=== PATIENT | female | born 1935 | race Caucasian/White ===

== ENCOUNTER 2017-11-12 10:21 | Emergency (ER) | payer MEDICARE, BC ==
--- NOTE | 2017-11-12 11:00 | CT ---
CT BRAIN: Date: 11/12/17 PROVIDED CLINICAL HISTORY: Trauma. FINDINGS: Comparison with 01/25/14. The ventricular system appears normal in size and morphology. There is no evidence for intracranial h emorrhage or mass effect. The extracranial soft tissues and osseous structures demonstrate no acute a bnormality. Chronic microvascular ischemic changes are again seen. IMPRESSION: No evidence for intracranial hemorrhage or mass effect. POS: [facility]
[2017-11-12 11:11] LABS: #Eosinphils 0.2 thou/uL (0.0-0.7); #Lymphocytes 0.7 thou/uL (1.20-3.40); #Monocytes 0.3 thou/uL (0.11-0.59); #Neutrophils 4.2 thou/uL (1.40-6.50); %Basophils 0.1 % (0.0-1.0); %Eosinophils 4.2 % (0.0-10.0); %Lymphocytes 13.6 % (21.0-51.0); %Monocytes 4.5 % (0.0-10.0); %Neutrophils 77.6 % (42.0-75.0); Hemoglobin 14.2 g/dL (12.0-16.0); Mean Corpuscular HGB CONC 33.2 g/dL (32.0-36.0); Mean Corpuscular Hemoglobin 34.6 pg (27.0-31.0); Mean Platelet Volume 7.8 fL (7.4-10.4); Platelet Count 143 thou/uL (130-400); RBC Distribution Width 11.9 % (11.5-14.5); Red Blood Cell (RBC) Count 4.11 mill/uL (4.20-5.40); White Blood Cell (WBC) Count 5.5 thou/uL (4.8-10.8)
[2017-11-12 11:37] LABS: ALT (SGPT) 27 U/L (8-55); AST (SGOT) 30 U/L (5-34); Albumin 4.3 g/dL (3.4-4.8); Alkaline Phosphatase 97 U/L (40-150); Anion Gap 13 mmol/L (10-20); BUN (Urea Nitrogen) 22 mg/dL (9.8-20.1); Bilirubin, Total 0.6 mg/dL (0.2-1.2); CK (CPK) 50 U/L (29-168); Calc. Creatinine Clearance 0 mL/min (70-130); Calcium 9.9 mg/dL (7.8-10.44); Carbon Dioxide 26 mmol/L (23-31); Chloride 102 mmol/L (98-107); Estimated GFR-MDRD 62; Globulin 2.6 g/dL (2.4-3.5); Glucose 132 mg/dL (83-110); Potassium 4.5 mmol/L (3.5-5.1); Protein, Total 6.9 g/dL (6.0-8.3); Sodium 136 mmol/L (136-145)
[2017-11-12 11:41] LABS: CKMB 1.3 ng/mL (0-6.6); Troponin I Less than 0.010 ng/mL (< 0.028)
[2017-11-12 12:04] LABS: Bilirubin Negative (Negative); Blood, Urine Negative (Negative); Clarity CLOUDY (Clear); Glucose, Urine (Dipstick) Negative (Negative); Leukocyte Negative (Negative); Nitrite Negative (Negative); Protein, Urine (Dipstick) Negative (Neg-Trace); Specific Gravity, Urine 1.018 (1.002-1.036)
== END 2017-11-12 12:35 | disposition home or self-care (01) ==
LOC: ERS 10:21
DX: S01.01XA Laceration without foreign body of scalp, initial encounter (principal); E03.9 Hypothyroidism, unspecified; I10 Essential (primary) hypertension; F41.9 Anxiety disorder, unspecified; Z87.891 Personal history of nicotine dependence; W01.0XXA Fall on same level from slipping, tripping and stumbling without subsequent striking against object, initial encounter
CPT/HCPCS: 36415; 70450; 80053; 81003; 82550; 82553; 84484; 85025; 93005

== ENCOUNTER 2018-02-25 23:31 | Emergency (ER) | payer MEDICARE, BC | END 2018-02-26 02:52 | disposition home or self-care (01) | LOC: ERS 23:31 | DX: K94.29 Other complications of gastrostomy (principal); E03.9 Hypothyroidism, unspecified; I10 Essential (primary) hypertension; F41.9 Anxiety disorder, unspecified; F17.210 Nicotine dependence, cigarettes, uncomplicated; Z86.73 Personal history of transient ischemic attack (TIA), and cerebral infarction without residual deficits; Z79.82 Long term (current) use of aspirin; Z79.899 Other long term (current) drug therapy | CPT/HCPCS: 99282 ==

== ENCOUNTER 2019-10-20 17:17 | Inpatient (IN) | payer MEDICARE, BC ==
--- NOTE | 2019-10-20 17:43 | RAD ---
AP PELVIS: 10/20/19 HISTORY: Patient fell. The bones are demineralized. The pelvic ring is intact without evidence of fracture. There is a right femoral neck fracture noted. IMPRESSION: Right femoral neck fracture. POS: [facility]
[2019-10-20 17:54] LABS: #Eosinphils 0.1 thou/uL (0.0-0.7); #Lymphocytes 1.1 thou/uL (1.20-3.40); #Monocytes 0.3 thou/uL (0.11-0.59); #Neutrophils 3.4 thou/uL (1.40-6.50); %Basophils 0.3 % (0.0-1.0); %Lymphocytes 21.5 % (21.0-51.0); %Monocytes 6.7 % (0.0-10.0); %Neutrophils 69.5 % (42.0-75.0); Hemoglobin 12.9 g/dL (12.0-16.0); Mean Corpuscular HGB CONC 32.4 g/dL (32.0-36.0); Mean Corpuscular Hemoglobin 33.3 pg (27.0-31.0); Mean Platelet Volume 8.3 fL (7.4-10.4); Platelet Count 155 thou/uL (130-400); RBC Distribution Width 12.1 % (11.5-14.5); Red Blood Cell (RBC) Count 3.88 mill/uL (4.20-5.40); White Blood Cell (WBC) Count 4.9 thou/uL (4.8-10.8)
[2019-10-20 18:14] LABS: ALT (SGPT) 25 U/L (8-55); AST (SGOT) 28 U/L (5-34); Alkaline Phosphatase 113 U/L (40-110); Anion Gap 10 mmol/L (10-20); BUN (Urea Nitrogen) 26 mg/dL (9.8-20.1); Bilirubin, Total 0.4 mg/dL (0.2-1.2); Calc. Creatinine Clearance 0 mL/min (70-130); Calcium 9.4 mg/dL (7.8-10.44); Carbon Dioxide 30 mmol/L (23-31); Chloride 101 mmol/L (98-107); Estimated GFR-MDRD 64; Glucose 113 mg/dL (83-110); Potassium 4.4 mmol/L (3.5-5.1); Sodium 137 mmol/L (136-145)
--- NOTE | 2019-10-20 18:36 | RAD ---
PORTABLE CHEST ONE VIEW: 10/20/19 at 6:30 p.m. HISTORY: Preoperative evaluation. Right hip fracture. FINDINGS: Comparison is made with 01/25/14. The heart size is normal. The lungs were expanded without lobar consolidation, pneumothoraces, or ple ural effusions. IMPRESSION: No radiographic evidence of acute cardiopulmonary process. POS: [facility]
[2019-10-20 18:39] LABS: Phosphorus 3.1 mg/dL (2.3-4.7)
[2019-10-20 18:44] LABS: Bilirubin Negative (Negative); Blood, Urine Negative (Negative); Clarity Clear (Clear); Glucose, Urine (Dipstick) Normal (Negative); Leukocyte Negative Leu/uL (Negative); Nitrite Negative (Negative); Protein, Urine (Dipstick) Negative (Neg-Trace); Urobilinogen Normal mg/dL (Less than 2)
[2019-10-20 19:17] LABS: PTT 31.2 SEC (22.9-36.1); Prothrombin Time 13.1 SEC (12.0-14.7)
[2019-10-20] MEDS ORDERED: Morphine 4 MG/ML VIAL ONE (19:20)
[2019-10-20] MEDS ORDERED: Dextrose 5% in Water 1,000 ML IV PRN (19:59)
[2019-10-20] MEDS ORDERED: Ondansetron PF 4 MG/2 ML Vial IVP PRN (19:59)
[2019-10-20] MEDS ORDERED: hydrALAZINE 20 MG/ML VIAL SLOW IVP PRN (19:59)
[2019-10-20] MEDS ORDERED: Dextrose 50% Abboject 50 ML SYRINGE SLOW IVP PRN (19:59)
[2019-10-20] MEDS ORDERED: Morphine 2 MG/ML SYRINGE SLOW IVP PRN (19:59)
[2019-10-20] MEDS ORDERED: Ibuprofen 600 MG TAB PER TUBE PRN (20:09)
[2019-10-20] MEDS ORDERED: Cyclobenzaprine 10 MG TAB PER TUBE PRN (20:12)
--- NOTE | 2019-10-20 20:32 | CON ---
DATE OF CONSULTATION: 10/20/2019 CHIEF COMPLAINT: Right hip pain. HISTORY OF PRESENT ILLNESS: Ms. Garcia is an 84-year-old female, who fell today at home. She lost her balance after tripping. She landed on her right side. She had pain in the right leg. She was unable to ambulate. She was taken to the emergency department by EMS. X-rays were obtained, which demonstrated a right femoral neck fracture. Orthopedics has been consulted including the General Surgery Trauma service for admission. She is resting comfortably. She has received pain medications. Of note, she has had a previous cerebrovascular accident several years ago with right-sided weakness. She also has a PEG tube as result of this. The patient normally ambulates with a cane. She remains independent and active. PAST MEDICAL HISTORY: Previous cerebrovascular accident, hypothyroidism, hypertension, dysphagia. PAST SURGICAL HISTORY: Hysterectomy, tonsillectomy, PEG tube placement, and carotid endarterectomy. PSYCHIATRIC HISTORY: Positive for anxiety. SOCIAL HISTORY: The patient formally smokes cigarettes. She does not any longer smoke. She denies alcohol or drug use. ALLERGIES: NO KNOWN DRUG ALLERGIES. FAMILY MEDICAL HISTORY: Noncontributory. REVIEW OF SYSTEMS: Positive for right hip and leg pain. Otherwise, negative 10-point review of systems. IMAGES: Pelvis x-ray demonstrates a femoral neck fracture of the right hip with displacement. PHYSICAL EXAMINATION: VITAL SIGNS: Stable. The patient is normotensive. She is afebrile at 98% on room air. GENERAL: She is alert, lying supine, no apparent distress. HEENT: Normocephalic, atraumatic. RESPIRATORY: Breathing comfortably. ABDOMEN: Soft, nontender, and nondistended. The patient has a PEG tube in place. MUSCULOSKELETAL: The patient's right leg is shortened and externally rotated. She has some pain with any motion of the hip or leg. She is able to flex and extend the foot and ankle. She has a palpable dorsalis pedis pulse. IMPRESSION: Right femoral neck fracture in an elderly female. PLAN: At this point, the patient will be admitted to the hospital for medical optimization. She will need DVT prophylaxis and antibiotic prophylaxis. She should be n.p.o. at midnight. We will plan for hemiarthroplasty, bipolar of the hip tomorrow morning. She is aware of risks and benefits of this. She wants to proceed. She is aware of the risks to include infection, neurovascular injury, DVT, instability of the hip, and others. Job ID: [id number]
[2019-10-20] MEDS: traMADol HCl 50 MG TAB PER TUBE PRN (21:36)
[2019-10-20] MEDS: Sodium Chloride 0.9% 1,000 ML IV SCH (21:46)
[2019-10-20 22:11] VITALS: BMI 17.1
--- NOTE | 2019-10-20 22:53 | HP ---
PCP: Dr. Saldivar, please CC. This is Kristy Us NP dictating a report for Zbigniew Lee MD. REQUESTING PHYSICIAN: Dr. Arellano. ATTENDING PHYSICIAN: Dr. Zbigniew Lee. CONSULTS: Orthopedic Surgery, Dr. Rowe. CHIEF COMPLAINT: Right hip pain status post fall. HISTORY OF PRESENT ILLNESS: This is an 84-year-old female who presented to the emergency room status post fall. The patient reports that she had walked outside to check her mail using her cane and she stood outside talking to her neighbor and reports that she was standing longer than she normally does when her legs gave out on her when she went to walk back to her house. The patient denies feeling weak , dizzy, chest pain, or shortness of breath prior to falling. The patient has a history of a cerebrovascular accident in 2013, which has caused her to have right-sided weakness, in which the patient uses a cane to ambulate. The patient also has dysphagia, in which she has a PEG tube. The patient receives all nutrition and medications via PEG tube. The patient states she also fell on [place], in which she sustained a contusion to her chin. The patient states that she lost her balance at that time when she fell. PAST MEDICAL HISTORY: Hypertension, cerebrovascular accident with sensory deficits and right-sided weakness, hypothyroidism, hypertension, Gastroesophageal reflux disease, and anxiety disorder. PAST SURGICAL HISTORY: Hysterectomy, tonsillectomy, PEG tube, left carotid endarterectomy. ALLERGIES: NO KNOWN DRUG ALLERGIES. MEDICATIONS: 1. Meloxicam 15 mg per G-tube once a day. 2. Levothyroxine 75 mcg per G-tube q.a.m. 3. Omeprazole 20 mg per G-tube once a day. 4. Lisinopril 20 mg G-tube once a day. 5. Atorvastatin 10 mg G-tube at bedtime. 6. Temazepam 15 mg G-tube once a day at bedtime. 7. Alprazolam 0.5 mg G-tube two times a day. 8. Budesonide 3 mg G-tube every other day. 9. Potassium chloride 20 mEq G-tube once a day. 10. Aspirin 81 mg daily. 11. Vitamin B 600 mg G-tube daily. 12. Melatonin 3 mg at bedtime. 13. Escitalopram 10 mg G-tube once a day. 14. MiraLAX 17 g per G-tube as needed. 15. Isosource three times a day per PEG tube. SOCIAL HISTORY: Previous smoker since she was 21 years' old, but stopped in 2013. Denies any alcohol use or drug use. The patient lives at home and her grandson occasionally stays with her. REVIEW OF SYSTEMS: A 10-point review of systems is negative unless indicated in the above HPI. OBJECTIVE: VITAL SIGNS: Pulse 79, respirations 12, and SpO2 of 94% on room air , blood pressure 170/71, temperature 98.6. GENERAL: Elderly female, awake, alert, in no distress. HEENT: Contusion to chin. Pupils are equal bilateral, mucous membranes are moist. Extraocular muscles intact. NECK: No cervical spine tenderness, trachea midline, normal range of motion. RESPIRATORY: Equal chest rise and fall, no respiratory distress, bilateral breath sounds clear. CARDIOVASCULAR: Regular rate, regular rhythm, no murmurs. ABDOMEN: Soft, nontender, nondistended. EXTREMITIES: Moves all extremities, distal pulses 2+ in all extremities, right lower extremity shortened and externally rotated. Tenderness to right hip. No pedal edema. NEUROLOGIC: No focal deficit. The patient is oriented to person, place, time, and event. LABORATORY DATA: WBC 4.9, RBC 3.88, hemoglobin 12.9, hematocrit 39.9, platelets 155. PT 13.1, INR 1.0, APTT 31.2. Sodium 137, potassium 4.4, chloride 101, BUN 26, creatinine 0.85, estimated GFR 64, glucose 113, calcium 9.4, phosphorus 3.1, magnesium 2.0, AST 28, ALT 25, troponin I 0.011. Urinalysis is negative for UTI. DIAGNOSTIC STUDIES: Pelvis x-ray; impression, right femoral neck fracture. Chest x-ray; impression, no evidence of acute cardiopulmonary process. ASSESSMENT: 1. Mechanical fall. 2. Right femoral neck fracture. 3. Acute traumatic pain. 4. History of hypertension. 5. CVA with dysphagia, PEG tube placement. PLAN: We will admit the patient to the surgical floor. The patient will be n.p.o. after midnight. The patient is able to take sips of water, but otherwise all nutrition and medications per PEG tube. Maintenance IV fluids, normal saline 75 mL an hour. PT and OT consult to evaluate and treat postop. Orthopedic Surgery, Dr. Rowe, plans to take the patient to the OR tomorrow for repair of her right femoral neck fracture. Will place the patient on a pain and bowel regimen. DVT prophylaxis with SCDs currently. We will continue patient's Isosource three times a day per PEG tube. Place a rehab screen as the patient is likely going to need inpatient rehab as the patient lives at home alone. The plan was discussed with the patient who agrees. The plan will be discussed with the attending after this dictation. Job ID: [id number] [facility]
[2019-10-21] MEDS: Acetaminophen 500 MG TAB PER TUBE SCH ×4 (00:38→17:07)
[2019-10-21] MEDS: traMADol HCl 50 MG TAB PER TUBE SCH ×4 (00:38→17:07)
[2019-10-21] MEDS: Levothyroxine Sodium 75 MCG TAB PER TUBE SCH (05:08)
[2019-10-21 05:43] LABS: Magnesium 1.9 mg/dL (1.6-2.6); Phosphorus 3.2 mg/dL (2.3-4.7)
[2019-10-21 06:29] LABS: Hemoglobin 12.8 g/dL (12.0-16.0); MDiff Complete? YES; Mean Corpuscular HGB CONC 34.1 g/dL (32.0-36.0); Mean Corpuscular Hemoglobin 34.5 pg (27.0-31.0); Mean Platelet Volume 8.2 fL (7.4-10.4); Platelet Count 146 thou/uL (130-400); RBC Distribution Width 12.1 % (11.5-14.5); White Blood Cell (WBC) Count 7.8 thou/uL (4.8-10.8)
[2019-10-21 06:30] LABS: Band 15 % (5-11); Lymphocytes 18 % (21-51); Monocytes 7 % (0-10); Neutrophil 60 % (42-75)
[2019-10-21] MEDS ORDERED: PHOS-NAK 1 PKT PACK PO SCH (07:30)
[2019-10-21] MEDS ORDERED: Magnesium 2 GM/50 ML 2 GM in Premix Bag 1 BAG IVPB SCH (07:30)
[2019-10-21] MEDS: Pantoprazole 40 MG GRANULES PACKET PER TUBE SCH (08:42)
[2019-10-21] MEDS: Polyethylene Glycol 3350 17 GM Packet PER TUBE SCH (09:59)
[2019-10-21] MEDS: Sodium Chloride 0.9% 1,000 ML IV SCH (09:59)
[2019-10-21] MEDS ORDERED: CEFAZOLIN 2 GM in Premix Bag 1 BAG IVPB SCH (10:00)
[2019-10-21] MEDS ORDERED: Glycopyrrolate 0.2 MG/ML 5 ML SYRINGE ONE (10:27)
[2019-10-21] MEDS ORDERED: PROPOFOL 200 MG/20 ML VIAL ONE (10:27)
[2019-10-21] MEDS ORDERED: ePHEDrine/0.9% NaCl/PF SYRINGE 50 mg/10 ml ONE (10:27)
[2019-10-21] MEDS ORDERED: Lidocaine 1% PF 5 ML VIAL ONE (10:27)
[2019-10-21] MEDS ORDERED: Rocuronium Bromide 10 MG/ML (10ML VIAL) ONE (10:27)
[2019-10-21] MEDS ORDERED: Ondansetron PF 4 MG/2 ML Vial ONE (10:27)
[2019-10-21] MEDS ORDERED: Fentanyl 100 MCG/2 ML VIAL ONE ×2 (10:43→12:47)
[2019-10-21] MEDS ORDERED: Phenylephrine HCL 10 MG/ML VIAL ONE (10:44)
--- NOTE | 2019-10-21 11:13 | PRG ---
DATE OF SERVICE: 10/21/2019 SUBJECTIVE: The patient was seen this morning lying in bed. She reported 6/10 pain and agreed to take additional pain medication. She reports she did not sleep well overnight because she did not have her home sleep aids. She was tolerating her tube feeds, which she takes at home previous to this and is n.p.o. now with normal saline at 75 an hour. OBJECTIVE: VITAL SIGNS: Temperature 98.7, pulse 69, respirations 18, oxygen saturation 94% on room air, blood pressure 128/68. GENERAL: Thin elderly female, lying in bed with no signs of acute distress. PULMONARY: Equal chest rise and fall. Clear breath sounds bilaterally. No signs of acute respiratory distress. CARDIAC: Regular rate and rhythm. No murmurs, gallops, or rubs. GI: Abdomen is soft, nontender, nondistended with PEG tube in place. EXTREMITIES: 2+ pulses in all extremities. Gross motor and sensation are intact. Right lower extremity is shortened and tender over the right hip. NEUROLOGIC: GCS is 15. LABORATORY FINDINGS: White count 7.8, hemoglobin 12.8, hematocrit 37.5, platelets 146. Phosphorus 3.2, magnesium 1.9. ASSESSMENT: 1. Status post mechanical fall from standing. 2. Right femoral neck fracture. 3. History of cerebrovascular accident, hypertension, dysphagia, left-sided weakness, hypothyroidism, anxiety, and gastroesophageal reflux disease. PLAN: Patient is n.p.o. for OR today for Dr. Rowe for fixation of her right femoral neck fracture. Postoperatively, we will restart her home Isosource tube feeds at 8 ounces t.i.d. She will also work with Physical and Occupational Therapy and will likely need placement in an acute rehab facility. We have restarted her home medications. We will continue to hold her home lisinopril and potassium chloride. We will replace phosphorus and magnesium today. We have also consulted the dietitian for revaluation of her tube feeds as she reports about a 10 pound weight loss recently. She may also have additional nutrition requirements with her recent fracture. We will follow up their recommendations and make adjustments as they see necessary. This patient was discussed with Dr. Lee before this dictation. Job ID: [id number]
[2019-10-21] MEDS ORDERED: SUGAMMADEX SODIUM 500 MG/5 ML VIAL ONE (12:29)
[2019-10-21] MEDS ORDERED: Ondansetron HCl/PF 4 MG/2 ML Vial IVP PRN (12:47)
[2019-10-21] MEDS ORDERED: Promethazine HCl 25 MG/ML VIAL IM PRN (12:47)
[2019-10-21] MEDS ORDERED: Promethazine HCl 25 MG/ML VIAL SLOW IVP PRN (12:47)
[2019-10-21] MEDS ORDERED: Morphine Sulfate 2 MG/ML SYRINGE SLOW IVP PRN (12:47)
--- NOTE | 2019-10-21 13:48 | RAD ---
AP PELVIS: HISTORY: Hemiarthroplasty of hip. FINDINGS: There are recent postop changes of right femoral head prosthesis placement since the exam of the prev ious day, in good position and alignment. The left hip is intact. POS: [facility]
--- NOTE | 2019-10-21 13:49 | RAD ---
RIGHT HIP ONE VIEW: HISTORY: Hemiarthroplasty right hip. FINDINGS: A single cross-table lateral view of the right hip demonstrates recent postop changes of femoral head prosthesis placement in good position and alignment. POS: [facility]
--- NOTE | 2019-10-21 15:10 | OP ---
DATE OF PROCEDURE: 10/21/2019 PROCEDURE PERFORMED: Right hip hemiarthroplasty. PREOPERATIVE DIAGNOSIS: Right femoral neck fracture. POSTOPERATIVE DIAGNOSIS: Right femoral neck fracture. COMPLICATIONS: None. ESTIMATED BLOOD LOSS: 100 mL. ANESTHESIA: General plus local. IMPLANTS: DePuy bipolar hemiarthroplasty size 5, [place] stem size +5, femoral neck with a 41 mm bipolar shell. INDICATIONS: Ms. Garcia is an 84-year-old female, who fell and fractured her right femoral neck. She has been indicated for hemiarthroplasty of the hip. Goal is to restore mobility, promote pain relief and prevent complications of prolonged bedrest. Risks to include infection, pain, scarring, neurovascular injury, DVT, PE, instability of the hip, and others. DESCRIPTION OF PROCEDURE: Ms. Garcia was identified in the preoperative holding area. Her correct extremity was marked. She was carried to the operating room. She was positioned supine. General anesthesia was induced. A multidisciplinary time-out was performed. The right lower extremity was prepped and draped in sterile fashion. We began the procedure with posterior approach to the hip. We dissected down through the subcutaneous tissues to the fascia, which was opened. We then exposed the short external rotators, which were subperiosteally divided from the bone. We performed a capsulotomy. At this point, we removed the femoral head and broken neck fragments. We performed a new osteotomy with our oscillating saw. We then proceeded to ream the femur and prepare it for our implant. We broached up to a size 5. We trialed off this. A +5 length was appropriate for stability and leg length. We removed our trial components. We then placed our final components. We thoroughly irrigated with copious lavage. We then closed the short external rotators and capsule through drill holes and %5 Ethibond suture. Finally, we closed the superficial layers and fascia appropriately. A sterile dressing was applied. The patient was taken to the recovery room in good condition. Job ID: [id number]
[2019-10-21] MEDS: ALPRAZolam 0.5 MG TAB PO PRN (17:06)
[2019-10-21] MEDS: CEFAZOLIN 2 GM in Premix Bag 1 BAG IVPB SCH (17:06)
[2019-10-21] MEDS: Atorvastatin Calcium 10 MG TAB PER TUBE SCH (21:08)
[2019-10-21] MEDS: Melatonin 3 MG TAB PO SCH (21:09)
[2019-10-21] MEDS: Temazepam 15 MG CAP PER TUBE SCH (21:09)
--- NOTE | 2019-10-21 21:25 | PRG ---
DATE OF SERVICE: 10/21/2019 SUBJECTIVE: This is an 84-year-old female, status post mechanical fall, who sustained a right femoral neck fracture. The patient is postop day zero status post right hip hemiarthroplasty. The patient is currently awake, alert, in no distress. The patient denies any complaints at this time. The patient reports that her pain is well controlled. OBJECTIVE: VITAL SIGNS: Stable, afebrile. GENERAL: An elderly female, lying in hospital bed, in no acute distress. PULMONARY: Equal chest rise and fall. Bilateral breath sounds clear. EXTREMITIES: 2+ pulses in all extremities. No pedal edema. ASSESSMENT: 1. Status post mechanical fall from standing. 2. Right femoral neck fracture, postop day zero. 3. History of cerebrovascular accident, hypertension, dysphagia, left-sided weakness, hypothyroidism, anxiety, gastroesophageal reflux disease. PLAN: Continue supportive care and pain regimen. Continue the patient's nutrition via PEG tube with Isosource 3 times a day. The patient is pending evaluation by Dietary as the patient has had a recent weight loss and she may need additional nutrition requirements due to her recent fracture. We will continue to have the patient work with Physical and Occupational Therapy tomorrow morning. The patient is pending placement to inpatient rehab. The plan was discussed with the patient's family, who agrees. Job ID: [id number]
[2019-10-22] MEDS: Acetaminophen 500 MG TAB PER TUBE SCH ×4 (00:53→17:46)
[2019-10-22] MEDS: traMADol HCl 50 MG TAB PER TUBE SCH ×4 (00:53→17:46)
[2019-10-22] MEDS: CEFAZOLIN 2 GM in Premix Bag 1 BAG IVPB SCH (01:00)
[2019-10-22 05:16] LABS: Anion Gap 9 mmol/L (10-20); BUN (Urea Nitrogen) 22 mg/dL (9.8-20.1); Calc. Creatinine Clearance 31 mL/min (70-130); Calcium 7.9 mg/dL (7.8-10.44); Carbon Dioxide 26 mmol/L (23-31); Chloride 104 mmol/L (98-107); Estimated GFR-MDRD 52; Glucose 150 mg/dL (83-110); Magnesium 2.3 mg/dL (1.6-2.6); Phosphorus 3.8 mg/dL (2.3-4.7); Potassium 4.4 mmol/L (3.5-5.1); Sodium 135 mmol/L (136-145)
[2019-10-22] MEDS: Levothyroxine Sodium 75 MCG TAB PER TUBE SCH (05:52)
[2019-10-22 05:53] LABS: Band 22 % (5-11); Eosinophils 3 % (0-10); Hemoglobin 9.8 g/dL (12.0-16.0); Lymphocytes 8 % (21-51); MDiff Complete? YES; Mean Corpuscular Hemoglobin 34.2 pg (27.0-31.0); Mean Platelet Volume 8.7 fL (7.4-10.4); Monocytes 6 % (0-10); Neutrophil 61 % (42-75); Platelet Count 130 thou/uL (130-400); Platelet Morphology Comment Appears Adequate; RBC Distribution Width 12.3 % (11.5-14.5); Red Blood Cell (RBC) Count 2.85 mill/uL (4.20-5.40); White Blood Cell (WBC) Count 7.8 thou/uL (4.8-10.8)
[2019-10-22] MEDS ORDERED: Sodium Chloride 0.9% 500 ML IV SCH (07:30)
[2019-10-22] MEDS ORDERED: PHOS-NAK 1 PKT PACK PO SCH (07:45)
[2019-10-22] MEDS: Pantoprazole 40 MG GRANULES PACKET PER TUBE SCH (09:48)
[2019-10-22] MEDS: Polyethylene Glycol 3350 17 GM Packet PER TUBE SCH (09:50)
[2019-10-22] MEDS: ALPRAZolam 0.5 MG TAB PO PRN ×2 (09:50→20:17)
[2019-10-22] MEDS: Aspirin 81 mg Enteric Coated Tablet PO SCH ×2 (09:50→20:17)
--- NOTE | 2019-10-22 10:21 | PRG ---
DATE OF SERVICE: 10/22/2019 SUBJECTIVE: The patient is postop day 1 status post right hip hemiarthroplasty for right femoral neck fracture. This morning, she reports she slept well overnight and her pain is well controlled. She has not been up out of bed yet, but is ready for physical therapy. The patient is tolerating her home Isosource 8 ounces t.i.d. Voiding without difficulties, although her urinary output has been low overnight, and her blood pressures have also been low, and she will receive a 500 mL bolus of normal saline 1 time. She will likely need placement in an acute rehab facility and that has been pending. We have been holding her home lisinopril and potassium chloride. OBJECTIVE: VITAL SIGNS: Temperature 97.7, pulse 73, respirations 14, oxygen saturation 96% on room air, blood pressure 90/53. GENERAL: Well-appearing elderly female, lying in bed with no signs of acute distress. PULMONARY: Equal chest rise and fall. Clear breath sounds bilaterally. No signs of acute respiratory distress. CARDIAC: Regular rate and rhythm. GI: Abdomen is soft, nontender, nondistended. PEG tube in place. EXTREMITIES: 2+ pulses in all extremities. No significant swelling noted. Gross motor and sensation are intact. NEURO: GCS is 15. LABORATORY FINDINGS: White count 7.8, hemoglobin 9.8, hematocrit 29.6, platelets 130. Sodium 135, potassium 4.4, chloride 104, bicarb 26, BUN 22, creatinine 1.01, glucose 150, phosphorus 3.8, magnesium 2.3. DIAGNOSTIC FINDINGS: There are no new diagnostic findings to report. ASSESSMENT: 1. Status post mechanical fall from standing. 2. Right femoral neck fracture, status post repair. 3. History of CVA, hypertension, dysphagia, hypothyroidism, anxiety, and gout. PLAN: Continue current pain regimen. Continue tube feeds t.i.d. as patient takes at home. Dietitian has been consulted to see the patient for revaluation of tube feeds. She reports she has been losing weight recently, and she may have different nutritional needs now that she has had a traumatic event, we will follow up their recommendations. The patient is to have physical and occupational therapy and will need placement in an acute rehab facility that is pending. She will also receive 500 mL bolus of normal saline x1 for lower blood pressure and low urinary output. We will continue to hold the patient's home lisinopril and potassium chloride as it is not yet indicated. The patient is to start working with Physical Therapy today. Job ID: [id number]
[2019-10-22] MEDS: Atorvastatin Calcium 10 MG TAB PER TUBE SCH (20:17)
[2019-10-22] MEDS: Melatonin 3 MG TAB PO SCH (20:17)
[2019-10-22] MEDS: Temazepam 15 MG CAP PER TUBE SCH (20:17)
--- NOTE | 2019-10-22 22:38 | PRG ---
DATE OF SERVICE: SUBJECTIVE: Patient is postop day #1 status post right hip hemiarthroplasty for right femoral neck fracture. Patient was seen this evening during rounds, awake, alert, in no distress. Patient reports moderate pain with physical therapy. Otherwise, pain is very minimal. Patient did report some vomiting after her Isosource feeding and reports that she received a little more water in her PEG tube than she usually receives. Patient's urinary output has increased after normal saline bolus. OBJECTIVE: VITAL SIGNS: Stable, afebrile. GENERAL: Well-appearing elderly female, lying in bed, in no acute distress. PULMONARY: Equal chest rise and fall, bilateral breath sounds clear. NEUROLOGIC: GCS 15. ASSESSMENT: 1. Status post mechanical fall from standing. 2. Right femoral neck fracture, status post repair. 3. History of cerebrovascular accident. 4. Hypertension. 5. Dysphagia. 6. Hypothyroidism. 7. Anxiety. 8. Gout. PLAN: Continue current pain regimen. Continue tube feeds three times a day pending recommendations from Dietary. We will continue to monitor patient's urinary output. We will continue physical and occupational therapy. Patient is pending placement. Job ID: [id number]
[2019-10-23] MEDS: Acetaminophen 500 MG TAB PER TUBE SCH ×4 (00:57→17:53)
[2019-10-23] MEDS: traMADol HCl 50 MG TAB PER TUBE SCH ×4 (00:57→18:25)
[2019-10-23 05:15] LABS: #Eosinphils 0.5 thou/uL (0.0-0.7); #Lymphocytes 0.8 thou/uL (1.20-3.40); #Monocytes 0.7 thou/uL (0.11-0.59); %Basophils 0.1 % (0.0-1.0); %Eosinophils 4.1 % (0.0-10.0); %Lymphocytes 6.5 % (21.0-51.0); %Monocytes 5.8 % (0.0-10.0); %Neutrophils 83.4 % (42.0-75.0); Hemoglobin 9.4 g/dL (12.0-16.0); Mean Corpuscular HGB CONC 32.1 g/dL (32.0-36.0); Mean Corpuscular Hemoglobin 33.5 pg (27.0-31.0); Mean Platelet Volume 8.6 fL (7.4-10.4); Platelet Count 134 thou/uL (130-400); RBC Distribution Width 12.1 % (11.5-14.5); Red Blood Cell (RBC) Count 2.81 mill/uL (4.20-5.40)
[2019-10-23 05:36] LABS: Anion Gap 10 mmol/L (10-20); BUN (Urea Nitrogen) 23 mg/dL (9.8-20.1); Calc. Creatinine Clearance 41 mL/min (70-130); Calcium 7.9 mg/dL (7.8-10.44); Carbon Dioxide 23 mmol/L (23-31); Chloride 100 mmol/L (98-107); Estimated GFR-MDRD 73; Glucose 113 mg/dL (83-110); Magnesium 2.1 mg/dL (1.6-2.6); Phosphorus 2.4 mg/dL (2.3-4.7); Potassium 4.7 mmol/L (3.5-5.1); Sodium 128 mmol/L (136-145)
[2019-10-23] MEDS: Levothyroxine Sodium 75 MCG TAB PER TUBE SCH (05:46)
[2019-10-23] MEDS ORDERED: Sodium Phosphate 30 MMOL in Sodium Chloride 0.9% 250 ML 250 ML IVPB SCH (07:15)
[2019-10-23] MEDS: ALPRAZolam 0.5 MG TAB PO PRN ×2 (08:02→17:56)
[2019-10-23] MEDS: Aspirin 81 mg Enteric Coated Tablet PO SCH ×2 (08:03→20:17)
[2019-10-23] MEDS: Pantoprazole 40 MG GRANULES PACKET PER TUBE SCH (08:03)
[2019-10-23] MEDS: Polyethylene Glycol 3350 17 GM Packet PER TUBE SCH (08:04)
[2019-10-23] MEDS ORDERED: Hydrocortisone Sod Succ/PF 100 mg/2 ml Vial IVP ONE (08:15)
[2019-10-23 08:44] LABS: Hemoglobin 9.8 g/dL (12.0-16.0); Mean Corpuscular HGB CONC 32.8 g/dL (32.0-36.0); Mean Corpuscular Hemoglobin 34.3 pg (27.0-31.0); Mean Platelet Volume 8.1 fL (7.4-10.4); Platelet Count 138 thou/uL (130-400); RBC Distribution Width 12.1 % (11.5-14.5); Red Blood Cell (RBC) Count 2.85 mill/uL (4.20-5.40); White Blood Cell (WBC) Count 12.5 thou/uL (4.8-10.8)
[2019-10-23 09:23] LABS: Band 11 % (5-11); Eosinophils 4 % (0-10); Lymphocytes 13 % (21-51); MDiff Complete? YES; Macrocytosis SLIGHT = 6-15 cells (100X) (0-5/hpf); Monocytes 3 % (0-10); Neutrophil 69 % (42-75); Platelet Morphology Comment Appears Adequate; Polychromasia SLIGHT = 2-3 cells (100X) (0-2/hpf)
[2019-10-23] MEDS ORDERED: Pancrelipase DR 12000 1 CAP FS PRN (10:17)
[2019-10-23] MEDS ORDERED: Sodium Bicarbonate Tab 325 MG TAB PER TUBE PRN (10:17)
[2019-10-23] MEDS: Sodium Chloride 1 GM TAB PO SCH ×3 (10:36→20:17)
[2019-10-23] MEDS: Metoclopramide HCl 10 MG/2 ML VIAL IVP SCH ×3 (10:36→17:53)
[2019-10-23] MEDS: traMADol HCl 50 MG TAB PER TUBE PRN (15:33)
--- NOTE | 2019-10-23 16:01 | PRG ---
DATE OF SERVICE: 10/23/2019 SUBJECTIVE: The patient was seen this morning sitting up in bed with no signs of acute distress. Nursing did report the patient vomited twice today and she is complaining of abdominal pain. States she usually has a bowel movement daily, but has not had a bowel movement since Wednesday. She has some mild abdominal tenderness. Has not been up out of bed yet today. OBJECTIVE: VITAL SIGNS: Temperature 98.3, pulse 68, respirations 16, oxygen saturation 98% on room air, blood pressure 137/76. GENERAL: An elderly frail female lying in bed with no signs of acute distress. PULMONARY: Equal chest rise and fall. Clear breath sounds bilaterally. No signs of acute respiratory distress. CARDIAC: Regular rate and rhythm. No murmurs, gallops, or rubs. GI: Soft, mildly tender to palpation and nondistended. EXTREMITIES: 2+ pulses in all extremities. Gross motor and sensation intact. NEURO: GCS is 15. LABORATORY FINDINGS: White count 12.5, hemoglobin 9.8, hematocrit 29.8, platelets 138. Sodium 132, potassium 4.2, chloride 100, bicarb 23, BUN 23, creatinine 0.76, glucose 113, phos 2.4, magnesium 2.1. Cortisol 22.3, albumin 3.1, pre-albumin 10.0. DIAGNOSTIC FINDINGS: There are no new diagnostic findings to report. ASSESSMENT: 1. Status post mechanical fall from standing. 2. Right femoral neck fracture, status post repair. 3. Acute hyponatremia, worsening. 4. Physical deconditioning. 5. Malnutrition. 6. History of cerebrovascular accident, hypertension, dysphagia, hypothyroidism, anxiety, and reflux. 7. Acute hypophosphatemia. PLAN: Dietitian has seen the patient and recommended increasing her tube feeds. We will follow their recommendations. Continue current pain regimen. Continue physical and occupational therapy. We will start the patient on sodium chloride t.i.d. for her hyponatremia. Replace phosphorus. We will try to optimize her nutrition while she is here. She has higher calorie needs, higher nutritional needs due to her injury. She is pending placement at rehab or swing bed in [facility]. The patient was seen and examined by Dr. Rodríguze before this dictation. Job ID: [id number]
[2019-10-23] MEDS: Melatonin 3 MG TAB PO SCH (20:17)
[2019-10-23] MEDS: Atorvastatin Calcium 10 MG TAB PER TUBE SCH (20:17)
[2019-10-23] MEDS: Temazepam 15 MG CAP PER TUBE SCH (20:17)
--- NOTE | 2019-10-23 23:48 | PRG ---
DATE OF SERVICE: 10/23/2019 SUBJECTIVE: The patient was seen this evening during the evening rounds, in no acute distress. The patient is resting comfortably. The patient did have some vomiting today. Dietary has increased the amount of tube feeds the patient receives. OBJECTIVE: VITAL SIGNS: Stable, afebrile. GENERAL: Elderly, frail female, lying in hospital bed, in no acute distress. PULMONARY: Equal chest rise and fall, no distress. ASSESSMENT: 1. Status post mechanical fall from standing. 2. Right femoral neck fracture, status post repair. 3. Acute hyponatremia. 4. Physical deconditioning. 5. Malnutrition. 6. History of cerebrovascular accident, hypertension, dysphagia, hypothyroidism, anxiety, and reflux. 7. Acute hypophosphatemia. PLAN: Continue tube feeds per Dietary's recommendations as tolerated. Continue current pain regimen. Continue physical and occupational therapy. Continue sodium tablets for the patient's hyponatremia. Replace electrolytes as needed. The patient is pending placement to swing bed in [place]. Job ID: [id number]
[2019-10-24] MEDS: traMADol HCl 50 MG TAB PER TUBE SCH ×3 (00:02→12:59)
[2019-10-24] MEDS: Acetaminophen 500 MG TAB PER TUBE SCH ×3 (00:02→12:59)
[2019-10-24] MEDS: Metoclopramide HCl 10 MG/2 ML VIAL IVP SCH ×2 (02:47→10:40)
[2019-10-24] MEDS: Levothyroxine Sodium 75 MCG TAB PER TUBE SCH (06:02)
[2019-10-24 06:24] LABS: Anion Gap 14 mmol/L (10-20); BUN (Urea Nitrogen) 30 mg/dL (9.8-20.1); Calc. Creatinine Clearance 30 mL/min (70-130); Calcium 8.2 mg/dL (7.8-10.44); Carbon Dioxide 23 mmol/L (23-31); Chloride 99 mmol/L (98-107); Estimated GFR-MDRD 50; Glucose 88 mg/dL (83-110); Magnesium 2.2 mg/dL (1.6-2.6); Phosphorus 3.6 mg/dL (2.3-4.7); Potassium 4.9 mmol/L (3.5-5.1); Sodium 131 mmol/L (136-145)
[2019-10-24 09:19] VITALS: TEMP 97.6
--- NOTE | 2019-10-24 10:26 | RAD ---
EXAM: 2 views abdomen PROVIDED CLINICAL HISTORY: Emesis COMPARISON: None FINDINGS: Visualized lung bases appear clear. Bowel gas pattern is nonspecific. No radiographically apparent ur inary tract calculi. No evidence for pneumoperitoneum. Presumed gastrostomy catheter overlies the abdomen. Conspicuous colonic fecal retention. IMPRESSION: Nonspecific bowel gas pattern.
[2019-10-24] MEDS: Aspirin 81 mg Enteric Coated Tablet PO SCH (10:39)
[2019-10-24] MEDS: Pantoprazole 40 MG GRANULES PACKET PER TUBE SCH (10:39)
[2019-10-24] MEDS: ALPRAZolam 0.5 MG TAB PO PRN (10:39)
[2019-10-24] MEDS: Polyethylene Glycol 3350 17 GM Packet PER TUBE SCH (10:39)
[2019-10-24] MEDS: Sodium Chloride 1 GM TAB PO SCH (10:40)
[2019-10-24] MEDS ORDERED: Bisacodyl 10 MG SUPP PR PRN (10:43)
[2019-10-24 11:15] VITALS: BP 121/64
--- NOTE | 2019-10-25 15:05 | DIS ---
DATE OF ADMISSION: 10/20/2019 DATE OF DISCHARGE: 10/24/2019 ADMISSION DIAGNOSES: 1. Status post mechanical fall. 2. Right femoral neck fracture. 3. History of cerebrovascular disease, hypertension, dysphagia, hypothyroid, anxiety, reflux, and tube feeding. DISCHARGE DIAGNOSES: 1. Status post ground level mechanical fall. 2. Right femoral neck fracture, status post open reduction and internal fixation of right femoral neck fracture. 3. History of cerebrovascular accident, hypertension, dysphagia, hypothyroid, anxiety, reflux, and tube feeding, physical deconditioning. CONSULTING PHYSICIAN: Dr. Phan Rowe. PROCEDURES PERFORMED: Right hip hemiarthroplasty. HOSPITAL COURSE: Ms. Garcia is 84-year-old female with history of cerebrovascular accident, hypertension, dysphagia, hypothyroid, anxiety, reflux, physical deconditioning, and tube feeding. She was admitted to [facility] due to an incident fall at home and sustained right femoral neck fracture. The patient underwent ORIF of right femoral neck fracture. The patient tolerated the procedure well. Postop, pain was well controlled. Tolerated tube feeding. Vital signs stable. Developed no fever or shortness of breath. PHYSICAL EXAMINATION: GENERAL: The patient is currently lying in bed, comfortable, in no acute respiratory distress. VITAL SIGNS: Temperature is 97.6, heart rate 76, respiratory rate 16, O2 saturation 97% on room air, blood pressure 107/52. LUNGS: Clear bilaterally. HEART: Regular rate and rhythm. ABDOMEN: Soft, nondistended. EXTREMITIES: Neurovascularly intact x4. Postop dressing clean, dry, intact. DISCHARGE DISPOSITION: Rehab. DISCHARGE CONDITION: Poor. DISCHARGE INSTRUCTIONS: The patient is to take medication as directed. The patient is to work with PT/OT. Continue DVT prophylaxis, gastritis prophylaxis, and pulmonary toilet. DISCHARGE MEDICATIONS: Tylenol, Xanax, aspirin, atorvastatin, budesonide, Flexeril, ibuprofen, hydralazine, DuoNeb, levothyroxine, lisinopril, melatonin, meloxicam, omeprazole, temazepam, potassium chloride, tramadol, vitamin B6. Job ID: [id number]
--- NOTE | 2019-10-25 22:37 | PQF ---
KALINA MOORE John [id number] [facility] A [id number] CLINICAL DOCUMENTATION CLARIFICATION FORM: POST DISCHARGE Addendum to original discharge summary date: ____ Late entry note date: __ Date:10/25/2019 ATTN: Zbigniew Lee Please exercise your independent, professional judgment in responding to the clarification form. Clinical indicators are provided on the bottom of this form for your review Please check appropriate box(s): [ ] Mild protein Calorie Malnutrition [ x ] Moderate protein Calorie Malnutrition [ ] Severe protein Calorie Malnutrition [ ] Other diagnosis [ ] Unable to determine In addition, please specify: Present on Admission (POA): [ x] Yes [ ] No [ ] Unable to determine CLINICAL INDICATORS - SIGNS / SYMPTOMS / LABS CVA with dysphagia PEG tube placement-Documented in H&P on 10/20 by Jesus Coy GERD-Documented in H&P on 10/20 by Jesus Coy The patient is able to take sips of water, but otherwise all nutrition and medications per PEG tube-Documented in H&P on 10/20 by Jesus Coy We have also consulted the dietitian for revaluation of her tube feeds as she reports about a 10 pound weight loss recently-Documented in PN on 10/21 by Verena Butler The patient is pending evaluation by dietary as the patient has had a recent weight loss and she may need additional nutrition requirement due to her recent fracture-Documented in PN on 10/21 by Abeba CORREA Malnutrition-Documented in PN on 10/23 by Abeba CORREA Albumin-3.1-Documented in laboratory BMI-17.1-Documented in FNS assessment RISK FACTORS CVA with dysphagia PEG tube placement-Documented in H&P on 10/20 by Jesus Coy GERD-Documented in H&P on 10/20 by Jesus Coy TREATMENT: We have also consulted the dietitian for revaluation of her tube feeds- Documented in PN on 10/21 by Verena Butler Continue the patient's nutrition VIA PEG tube with lsosource 3 times a day- Documented in PN on 10/21 by Abeba CORREA Continue tube feeds per dietary's recommendation as tolerated--Documented in PN on 10/23 by Abeba CORREA Moderate Malnutrition (in acute illness) Energy Intake: <75% of estimated energy requirement for > 7 days Weight Loss: 1-2%/1 week; 5%/ 1 month; 7.5%/3 months Other: mild body fat loss; mild muscle mass loss; mild fluid accumulation; Severe Malnutrition (in acute illness) Energy Intake: < 50% of estimated energy requirement for > 5 days Weight Loss: >1-2%/1 week; >5%/1 month; >7.5%/3 months Other: moderate body fat loss; moderate muscle mass loss; moderate- severe fluid accumulation; measurably reduced engineer byproduct strength Moderate Malnutrition (in chronic illness) Energy Intake: <75% of estimated energy requirement for >1 month Weight Loss: 5%/1 month; 7.5%/3 months; 10%/6 months; 20%/1 year Other: mild body fat loss; mild muscle mass loss; mild fluid accumulation Severe Malnutrition (in chronic illness) Energy Intake: <75% of estimated energy requirement for >1 month Weight Loss: >5%/1 month; >7.5%/3 months; >10%/6 months; >20%/1 year Other: severe body fat loss; severe muscle mass loss; severe fluid accumulation ; measurably reduced engineer byproduct strength [employer] (This form is maintained as a part of the permanent medical record) 2014 [employer]. All Rights Reserved [email or web address] [not [email or web address]] MTDD
== END 2019-10-24 14:50 | DRG 470 ==
LOC: ERS 17:17 → SURG A 20:04
PROVIDERS: ADMIT Surgery; ATTEND Surgery
PROC: 0SRR0JZ Replacement of Right Hip Joint, Femoral Surface with Synthetic Substitute, Open Approach (ICD-10-PCS; principal; 2019-10-21)
DX: S72.091A Other fracture of head and neck of right femur, initial encounter for closed fracture (principal); I69.951 Hemiplegia and hemiparesis following unspecified cerebrovascular disease affecting right dominant side; E87.1 Hypo-osmolality and hyponatremia; Z68.1 Body mass index [BMI] 19.9 or less, adult; E44.0 Moderate protein-calorie malnutrition; R40.2362 Coma scale, best motor response, obeys commands, at arrival to emergency department; R40.2142 Coma scale, eyes open, spontaneous, at arrival to emergency department; R40.2252 Coma scale, best verbal response, oriented, at arrival to emergency department; F41.9 Anxiety disorder, unspecified; E03.9 Hypothyroidism, unspecified; K21.9 Gastro-esophageal reflux disease without esophagitis; M10.9 Gout, unspecified; I10 Essential (primary) hypertension; W18.39XA Other fall on same level, initial encounter; I69.991 Dysphagia following unspecified cerebrovascular disease; Z90.710 Acquired absence of both cervix and uterus; Z93.1 Gastrostomy status; Y93.89 Activity, other specified; Y92.098 Other place in other non-institutional residence as the place of occurrence of the external cause
CPT/HCPCS: 36415; 71045; 72170; 74019; 80048; 80053; 81003; 82040; 82533; 83735; 84100; 84134; 84484; 85007; 85025; 85027; 85610; 85730; 93005; 96361; 96374; A4353; G0390; J0690; J1720; J2001; J2270; J2370; J2405; J2704; J2765; J3010; J3475; J7050

== ENCOUNTER 2020-08-08 00:24 | Emergency (ER) | payer MEDICARE, BC ==
--- NOTE | 2020-08-08 08:15 | RAD ---
SUPINE ABDOMEN: INDICATION: Assess PEG tube placement. FINDINGS/IMPRESSION: Contrast has been injected via a PEG tube. Contrast opacifies the stomach. There is no extravasatio n outside the stomach. Findings indicate adequate PEG tube position. POS: AGW
[2020-08-08] MEDS ORDERED: GASTROGRAFIN 30 ML BOT ONE (15:19)
== END 2020-08-08 00:28 | disposition home or self-care (01) ==
LOC: ERS 00:24
DX: K94.23 Gastrostomy malfunction (principal); E78.5 Hyperlipidemia, unspecified; E03.9 Hypothyroidism, unspecified; I10 Essential (primary) hypertension; F41.9 Anxiety disorder, unspecified; Z87.891 Personal history of nicotine dependence; Z79.899 Other long term (current) drug therapy
CPT/HCPCS: 43762; 74018; Q9963

== ENCOUNTER 2021-11-28 18:20 | Emergency (ER) | payer MEDICARE, BC ==
[~2021-11-28 18:20] MED LIST: GASTROGRAFIN 30 ML BOT ONE
== END 2021-11-28 20:00 | disposition home or self-care (01) ==
LOC: ERS 18:20
DX: K94.23 Gastrostomy malfunction (principal); I10 Essential (primary) hypertension; E03.9 Hypothyroidism, unspecified; Z86.73 Personal history of transient ischemic attack (TIA), and cerebral infarction without residual deficits; Z87.891 Personal history of nicotine dependence; Z79.82 Long term (current) use of aspirin; Z79.899 Other long term (current) drug therapy
CPT/HCPCS: 74018; Q9963

== ENCOUNTER 2021-12-10 12:11 | Outpatient (CLI) | payer MEDICARE, BC | END 2021-12-10 12:12 | disposition home or self-care (01) | LOC: BICRAD 12:11 | PROVIDERS: ATTEND Podiatrist | DX: L97.519 Non-pressure chronic ulcer of other part of right foot with unspecified severity (principal) ==

== ENCOUNTER 2022-02-15 01:33 | Emergency (ER) | payer MEDICARE, BC ==
[2022-02-15] MEDS ORDERED: Diazepam 10 MG/2 ML SYRINGE ONE (02:11)
[2022-02-15] MEDS ORDERED: Ketorolac Tromethamine 30 MG/ML VIAL ONE (03:26)
== END 2022-02-15 04:52 | disposition home or self-care (01) ==
LOC: ERS 01:33
DX: M54.2 Cervicalgia (principal); E03.9 Hypothyroidism, unspecified; I10 Essential (primary) hypertension; Z86.73 Personal history of transient ischemic attack (TIA), and cerebral infarction without residual deficits; Z87.891 Personal history of nicotine dependence
CPT/HCPCS: 93005; 96372; J1885; J3360

== ENCOUNTER 2022-10-20 12:04 | Outpatient (CLI) | payer MEDICARE, BC | END 2022-10-20 12:05 | disposition home or self-care (01) | LOC: RAD 12:04 | DX: L97.529 Non-pressure chronic ulcer of other part of left foot with unspecified severity (principal); M20.12 Hallux valgus (acquired), left foot ==